=== PATIENT | female | born 1985 | race African-American/Black ===

== ENCOUNTER 2019-12-24 23:15 | Emergency (ER) | payer MEDICAID, OTHER ==
[~2019-12-24] VITALS: Ht 172.7 cm; Wt 82.0 kg
[2019-12-25] MEDS ORDERED: ACETAMINOPHEN WITH CODEINE 300/30MG TABLET PO STA (02:10)
[2019-12-25] MEDS ORDERED: BACITRACIN ZINC OINT UDPKT TOP ONE (02:15)
[2019-12-25 03:33] VITALS: BP 126/79
== END 2019-12-25 03:35 | disposition home or self-care (01) ==
LOC: ER 23:15
DX: T24.202A Burn of second degree of unspecified site of left lower limb, except ankle and foot, initial encounter (principal); X03.8XXA Other exposure to controlled fire, not in building or structure, initial encounter; Y93.89 Activity, other specified; Y92.89 Other specified places as the place of occurrence of the external cause; R03.0 Elevated blood-pressure reading, without diagnosis of hypertension
CPT/HCPCS: 99283